=== PATIENT | female | born 1995 | race Caucasian/White ===

== ENCOUNTER 2022-03-08 11:35 | Outpatient (CLI) | payer BC, OTHER, SELFPAY ==
[2022-03-08 12:02] LABS: Basophils Absolute Auto 0.1 K/mm3 (0.0-0.1); Basophils Percent Auto 1.2 % (0.2-1.2); Eosinophils Absolute Auto 0.1 K/mm3 (0-0.3); Eosinophils Percent Auto 1.6 % (0-4.4); Hematocrit 34.1 % (37.0-47.0); Hemoglobin 11.6 g/dL (12.0-15.0); Immature Granulocyte Absolute 0.02 K/mm3 (0.00-0.031); Immature Granulocyte Percent A 0.2 % (0-0.5); Lymphocytes Absolute Auto 2.68 K/mm3 (0.9-3.2); Lymphocytes Percent Auto 32.5 % (18.3-44.2); Mean Corpuscular Hemoglobin 31.4 pg (26-34); Mean Corpuscular Volume 92.2 fl (80-100); Mean Platelet Volume 9.7 fl (7.4-10.4); Monocytes Absolute Auto 0.5 K/mm3 (0.1-0.6); Monocytes Percent Auto 6.2 % (2.6-8.5); Neutrophils Absolute Auto 4.8 K/mm3 (1.3-6.7); Neutrophils Percent Auto 58.3 % (45.5-73.1); Platelet Count Result 247 k/mm3 (150-375); Red Cell Distribution Width 12.5 % (11.5-14.5); White Blood Count 8.2 K/mm3 (4.5-10.0)
[2022-03-08 12:45] LABS: Hepatitis B Surface Antigen Negative (Negative); Rubella IgG Antibody 23.6 IU/ML
[2022-03-08 12:54] LABS: HIV 1/2 Ab P24 Ag Result Negative (Negative)
[2022-03-10 07:35] LABS: Rapid Plasma Reagin Non-Reactive (NonReactive)
[2022-03-11 08:28] LABS: CMV IgG Antibody <0.60 U/mL (<0.60)
== END 2022-03-08 11:36 | disposition home or self-care (01) ==
PROVIDERS: Visit Provider Obstetrics & Gynecology
DX: N94.89 Other specified conditions associated with female genital organs and menstrual cycle (principal)
CPT/HCPCS: 36415; 84702; 85025; 86592; 86644; 86703; 86747; 86762; 86787; 86850; 86900; 86901; 87086; 87088; 87340; G0432

== ENCOUNTER 2022-07-11 12:10 | Outpatient (CLI) | payer BC, SELFPAY ==
[2022-07-11 13:54] LABS: Basophils Absolute Auto 0.1 K/mm3 (0.0-0.1); Basophils Percent Auto 0.9 % (0.2-1.2); Eosinophils Absolute Auto 0.1 K/mm3 (0-0.3); Hematocrit 33.9 % (37.0-47.0); Hemoglobin 11.2 g/dL (12.0-15.0); Immature Granulocyte Absolute 0.03 K/mm3 (0.00-0.031); Immature Granulocyte Percent A 0.3 % (0-0.5); Lymphocytes Absolute Auto 0.81 K/mm3 (0.9-3.2); Lymphocytes Percent Auto 9.3 % (18.3-44.2); Mean Corpuscular Hemoglobin 31.8 pg (26-34); Mean Corpuscular Volume 96.3 fl (80-100); Mean Platelet Volume 9.2 fl (7.4-10.4); Monocytes Absolute Auto 0.8 K/mm3 (0.1-0.6); Monocytes Percent Auto 9.3 % (2.6-8.5); Neutrophils Absolute Auto 6.9 K/mm3 (1.3-6.7); Neutrophils Percent Auto 79.2 % (45.5-73.1); Platelet Count Result 216 k/mm3 (150-375); Red Blood Count 3.52 M/mm3 (4.2-5.4); Red Cell Distribution Width 13.4 % (11.5-14.5); White Blood Count 8.7 K/mm3 (4.5-10.0)
[2022-07-11 13:58] LABS: Glucose 1 Hour PP 50gm Dose 128 mg/dL
[2022-07-11 14:39] LABS: HIV 1/2 Ab P24 Ag Result Negative (Negative)
== END 2022-07-11 12:11 | disposition home or self-care (01) ==
PROVIDERS: Visit Provider Obstetrics & Gynecology
DX: Z34.90 Encounter for supervision of normal pregnancy, unspecified, unspecified trimester (principal); Z3A.00 Weeks of gestation of pregnancy not specified
CPT/HCPCS: 36415; 82947; 85025; 86703; G0432

== ENCOUNTER 2022-09-29 09:06 | Outpatient (RCR) | payer OTHER, SELFPAY ==
--- NOTE | ~2022-09-29 | US_ITS ---
US OB BPP wo non-stress DATE: 09/29/2022 10:03 INDICATION: Past due date TECHNIQUE: Real-time imaging, Doppler analysis COMPARISON: 09/01/2022 Limited abdominal ultrasound examination FINDINGS: Live tovar intrauterine gestation, fetus in longitudinal lie, vertex presentation with heart rate of 137 bpm. Fundal placenta. BIOPHYSICAL PROFILE reported by gi technician: breathin out of 2 movement: 2 out of 2 tone: 2 out of 2 Amniotic fluid pocket (3.4 cm deep amniotic fluid pocket is identified.): 2 out of 2 Total score: 8 out of 8 IMPRESSION: Normal biophysical profile score of 8 out of 8 Reviewed, dictated and finalized at [facility]. Reviewed, dictated and finalized at location B.
[2022-09-29 09:53] VITALS: BP 126/83; PULSE 98
== END 2022-09-29 10:00 | disposition home or self-care (01) ==
LOC: ANHOBOP 09:06
PROVIDERS: Visit Provider Obstetrics & Gynecology
DX: O48.0 Post-term pregnancy (principal); Z3A.40 40 weeks gestation of pregnancy
CPT/HCPCS: 59025; 76819

== ENCOUNTER 2022-09-29 20:09 | Inpatient (IN) | payer OTHER, SELFPAY ==
[2022-09-29] VITALS (24 sets, daily range): BP systolic 125–147; BP diastolic 70–101; PULSE 80–124; O2SAT 94–96; BMI 30.2
--- NOTE | 2022-09-29 21:00 | LDADM ---
This patient, Antonieta Parada, was admitted to Labor/Delivery/Recovery 106 on 09/29/22 at 20:09. Plans for labor, pain management and were discussed with patient. Patient/family oriented to hospital policies and general routines including ID bracelet, bed and alarms, visiting hours, pain management, procedures, bathroom and other care routines, personal items, smoking policy, room service/diet and guest tray routines, infant security routines, and visiting hours. Patient/Family are encouraged to report perceived risks to care and to ask questions if they do not understand what they are told or what they should do. See OBIX for further documentation.
[2022-09-29 21:04] LABS: Basophils Absolute Auto 0.1 K/mm3 (0.0-0.1); Basophils Percent Auto 0.5 % (0.2-1.2); Eosinophils Absolute Auto 0.1 K/mm3 (0-0.3); Eosinophils Percent Auto 0.6 % (0-4.4); Hematocrit 38.8 % (37.0-47.0); Hemoglobin 13.3 g/dL (12.0-15.0); Immature Granulocyte Absolute 0.09 K/mm3 (0.00-0.031); Immature Granulocyte Percent A 0.6 % (0-0.5); Lymphocytes Absolute Auto 2.07 K/mm3 (0.9-3.2); Lymphocytes Percent Auto 13.2 % (18.3-44.2); Mean Corpuscular HGB Conc 34.3 g/dl (32-36); Mean Corpuscular Hemoglobin 32.8 pg (26-34); Mean Corpuscular Volume 95.8 fl (80-100); Mean Platelet Volume 11.7 fl (7.4-10.4); Monocytes Absolute Auto 0.8 K/mm3 (0.1-0.6); Monocytes Percent Auto 5.3 % (2.6-8.5); Neutrophils Absolute Auto 12.5 K/mm3 (1.3-6.7); Neutrophils Percent Auto 79.8 % (45.5-73.1); Platelet Count Result 198 k/mm3 (150-375); Red Blood Count 4.05 M/mm3 (4.2-5.4); Red Cell Distribution Width 13.1 % (11.5-14.5); White Blood Count 15.7 K/mm3 (4.5-10.0)
[2022-09-29 21:26] LABS: Alanine Aminotransferase 27 U/L (6-35); Albumin Level 3.9 g/dL (3.5-5.1); Alkaline Phosphatase 263 U/L (38-126); Anion Gap 9 mmol/L (8-16); Aspartate Amino Transferase 35 U/L (14-36); Bilirubin,Total 0.6 mg/dL (0.2-1.3); Blood Urea Nitrogen 14 mg/dL (7-17); Calcium 9.1 mg/dL (8.4-10.2); Carbon Dioxide 19 mmol/L (22-30); Chloride 105 mmol/L (98-107); Estimated Glomerular Filt Rate > 60; Glucose 93 mg/dL (65-110); Potassium 4.3 mmol/L (3.4-5.0); Sodium 133 mmol/L (137-145)
[2022-09-29] MEDS: LACTATED RINGERS 1,000 ML 999 ML IV CONT (21:45)
--- NOTE | 2022-09-29 21:57 | WPDANESEPP ---
Anes - Eval Pre Procedure Procedure: labor epidural Date/Time: 09/29/22 21:57 Pre Op Diagnosis: Labor Patient Data Age: 27 Gender: F Height: 1.5 m Weight: 68 kg Last Vital Signs Pulse 82 09/29/22 21:48 BP 139/85 09/29/22 21:48 Allergies Allergy/AdvReac Type Severity Reaction Status Date / Time No Known Allergies Allergy Verified 09/24/22 09:17 Home Medications Medication Instructions Recorded Confirmed Type vitamins-iron fumarate 65 1 tablet PO DAILY 01/30/22 09/24/22 History mg iron-folic acid 1 mg tablet ferrous sulfate 325 mg (65 mg 325 mg PO DAILY 04/14/22 09/24/22 History iron) tablet,delayed release Laboratory Tests 09/29/22 09/29/22 09/29/22 20:52 20:53 20:53 WBC 15.7 K/mm3 H K/mm3 (4.5-10.0) RBC 4.05 M/mm3 L M/mm3 (4.2-5.4) Hgb 13.3 g/dL g/dL (12.0-15.0) Hct 38.8 % % (37.0-47.0) MCV 95.8 fl fl (80-100) MCH 32.8 pg pg (26-34) MCHC 34.3 g/dl g/dl (32-36) RDW 13.1 % % (11.5-14.5) Plt Count 198 k/mm3 k/mm3 (150-375) MPV 11.7 fl H fl (7.4-10.4) Immature Gran % (Auto) 0.6 % H % (0-0.5) Neut % (Auto) 79.8 % H % (45.5-73.1) Lymph % (Auto) 13.2 % L % (18.3-44.2) Hill % (Auto) 5.3 % % (2.6-8.5) Eos % (Auto) 0.6 % % (0-4.4) Baso % (Auto) 0.5 % % (0.2-1.2) Lymph # (Auto) 2.07 K/mm3 K/mm3 (0.9-3.2) Hill # (Auto) 0.8 K/mm3 H K/mm3 (0.1-0.6) Eos # (Auto) 0.1 K/mm3 K/mm3 (0-0.3) Baso # (Auto) 0.1 K/mm3 K/mm3 (0.0-0.1) Abs Immat Gran (auto) 0.09 K/mm3 H K/mm3 (0.00-0.031) Absolute Neuts (auto) 12.5 K/mm3 H K/mm3 (1.3-6.7) Absolute Nucleated RBC 0.0 K/mm3 K/mm3 (0.0-0.012) Nucleated RBC % 0.0 % % (0.0-0.2) Sodium 133 mmol/L L mmol/L (137-145) Potassium 4.3 mmol/L mmol/L (3.4-5.0) Chloride 105 mmol/L mmol/L (98-107) Carbon Dioxide 19 mmol/L L mmol/L (22-30) Anion Gap 9 mmol/L mmol/L (8-16) BUN 14 mg/dL mg/dL (7-17) Creatinine 0.60 mg/dL L mg/dL (0.7-1.0) Estim Creat Clear Calc Not Reportable Estimated GFR > 60 (59 - ) Glucose 93 mg/dL mg/dL (65-110) Calcium 9.1 mg/dL mg/dL (8.4-10.2) Total Bilirubin 0.6 mg/dL mg/dL (0.2-1.3) AST 35 U/L U/L (14-36) ALT 27 U/L U/L (6-35) Alkaline Phosphatase 263 U/L H U/L (38-126) Total Protein 7.0 g/dL g/dL (6.3-8.2) Albumin 3.9 g/dL g/dL (3.5-5.1) RPR Pending Patient hx anesthesia problems: none Family hx anesthesia problems: none Results Review: All pre-operative results and documents have been reviewed as part of the pre-operative evaluation. [facility] Past Medical History Medical History Panic attack Suppression of menstruation Surgical History Surgical History H/O abdominal surgery umbilical surgery as a child Family History Family History Grandparent Lung cancer maternal grandmother Other Hypertension Social History Social History Smoking status: Never smoker Alcohol intake: never Substance use: never Substance use type: does not use Lack of Transportation: No Lack of Food: Never True Current Housing: I Have Housing Concerned About Future Housing: No Difficulty Paying Gas/Electric Bills: No Difficulty Paying for Meds: No Currently Unemployed: No Education: High School Diploma/GED Difficulty w/ Childcare or Family Care: No Living arrangements: other Additional living ar
[2022-09-29] MEDS: LACTATED RINGERS 1,000 ML 125 ML IV CONT (22:53)
[2022-09-30] VITALS (34 sets, daily range): BP systolic 105–135; BP diastolic 56–93; PULSE 74–143; RESP 16–20; TEMP 36.7–37.6; O2SAT 97–100
[2022-09-30] MEDS: LACTATED RINGERS 1,000 ML 125 ML IV CONT (01:57)
[2022-09-30] MEDS: OXYTOCIN 30 UNITS/NS 500 ML 30 UNITS/500 ML BAG 6 UNITS IV CONT (06:38)
[2022-09-30 10:53] LABS: Rapid Plasma Reagin Non-Reactive (NonReactive)
--- NOTE | 2022-09-30 11:05 | WPDHPUPDATE1 ---
History and Physical Update Update Date/Time: 09/30/22 11:05 History and Physical has been reviewed, including an updated exam of the patient. There are NO changes in the patient's condition. Risks, benefits, and alternatives have been discussed and questions answered. Patient agrees to proceed with procedure.
--- NOTE | 2022-09-30 11:05 | WPDOBADMIT ---
Obstetrics - Admit Note Admission Note: record reviewed. No pertinent additions to the history and/or any subsequent changes in the physical findings that are not consistent with the expected course of the were found. Additions to the history and/or subsequent changes in the physical findings follow. None.
--- NOTE | 2022-09-30 11:06 | PM.OBPRVD ---
OB - Delivery Note Procedure Induction method: None Delivery augmentation: Pitocin Delivery monitor: External FHT and External Uterine Route of delivery: Episiotomy description: None Laceration Description: Perineal - 3rd Degree ( Partial third-degree) and Other ( 1. Bilateral sulcus tears) Delivery repair: vicryl and chromic Specimen: No Quantitative Blood Loss (ml): 500 Anesthesia type: Epidural Disposition: Floor Complications: none Narrative: patient prepped and draped in usual manner for this procedure. Maternal expulsive efforts delivered vertex over intact perineum. Rest of baby was delivered cord clamped cut placenta delivered spontaneously. Bilateral sulcus tears were approximated using 2-0 chromic in a running interlocking manner with good approximation hemostasis noted in midline tear was approximated in the same manner and brought to the perineum. Deep tissue was then approximated using 2-0 chromic and the subcuticular layer was used to approximate the skin edges. Prior to approximate skin edges the rectal sphincter which was was approximated using 0 Vicryl in interrupted sutures. The rectal sphincter itself was intact, the capsule was all that needed to be approximated. [place] [facility] Weeks of gestation at delivery: 40 gender: Female Weight (pounds): 5 Weight (ounces): 12 presentation: vertex Placenta delivery description: Spontaneous Cord Vessel Description: 3 Vessels, Nuchal Cord and Reduced AMG Delivery Billing Delivery Delivery: Delivery Charge
[2022-09-30] MEDS: OXYTOCIN 30 UNITS/NS 500 ML 30 UNITS/500 ML BAG 125 UNITS IV CONT (11:15)
[2022-09-30] MEDS: ONDANSETRON INJ 4 MG/2 ML VIAL IV PUSH (11:16)
[2022-09-30] MEDS: HYDROcodone/acetaminophen (*CRX) 5-325 MG TABLET 1 TAB PO (15:40)
[2022-09-30] MEDS: KETOROLAC 30 MG/ML VIAL (*BKC) IV PUSH (16:00)
--- NOTE | 2022-09-30 16:56 | PC.NURSE ---
[id number] Introductions were made by Primary RN present in the room. Mother works well with her infant with encouragement and education. Encouraged understanding of the benefits of skin to skin (demonstrating unwrapping infant and placing upright on her chest), stimulating with massage touch, changing positions to encourage wakefulness, how to watch for early feeding cues, responsive feeding, feeding on demand (aiming for 8-12 times in 24 hours, about every 2-3 hours), milk production, building/maintaining a milk supply,hand expression, duration of feeding, signs of adequate intake/output and how to record on the feeding sheet. Reviewed positioning and ear, shoulder, hip alignment, supporting the breast with the sandwich hold to facilitate a deep latch, asymmetrical latch (off-center), leading with the chin with a big, open, wide gape and body close to mother. latched optimally to the right breast in cross cradle laid-back position. Education given to mother of how to visualize suck/swallow ratios and listen for drinking at the breast. Infant was able to maintain latch without discomfort to mother. Nipple care reviewed with optimal latch and good positioning. Reminding mother of comfort measures of healing with a warm and wet washcloth to rinse breast, then leave open to air-dry as needed. Reviewed good handwashing when or touching the breast/nipples to prevent infection. Resources used to facilitate learning were used with the tool, mom and baby guide. Infant effectively breastfed on the left breast using the football positioning. Infant had a copious amount of meconium stool and a wet diaper changed. Mother voiced understanding of skin to skin, stimulating with massage touch, responsive feedings, hand expressed colostrum, talking to infant to encourage if it has been 2 -2.5 hours since the start of the last , to call if infant does not latch, or if there is discomfort with . Resources provided for inpatient and outpatient services with the feeding sheet, mom/baby guide. Mother voiced understanding of information and will call if there is a request for assistance. Reported to the primary RN.
[2022-09-30] MEDS: SENNA/DOCUSATE SODIUM TABLET 2 TAB PO (22:40)
[2022-10-01] MEDS: HYDROcodone/acetaminophen (*CRX) 5-325 MG TABLET 1 TAB PO ×3 (00:08→20:55)
[2022-10-01] MEDS: IBUPROFEN 600 MG TABLET PO ×3 (00:08→16:54)
[2022-10-01 03:35] VITALS: BP 126/78; PULSE 89; RESP 16; TEMP 36.4
[2022-10-01 04:40] LABS: Hematocrit 29.4 % (37.0-47.0); Hemoglobin 9.8 g/dL (12.0-15.0)
[2022-10-01 07:55] VITALS: BP 120/86; PULSE 93; RESP 16; TEMP 37.2; O2SAT 99
[2022-10-01] MEDS: DOCUSATE SODIUM 100 MG CAPSULE PO (08:49)
[2022-10-01] MEDS: POLYSACCHARIDE IRON COMPLEX 150 MG CAPSULE PO ×2 (08:50→16:29)
[2022-10-01] MEDS: MULTIVIT/MIN/PREN/FOL AC/IRON TABLET 1 TAB PO (08:50)
[2022-10-01] MEDS: FERROUS SULFATE 324 MG TABLET PO (08:50)
--- NOTE | 2022-10-01 10:28 | PM.OBPNVD ---
OB - PN: Subj Subjective Date/time seen: 10/01/22 10:28 day 1 without significant concerns. Minimal bleeding and cramping that was significant yesterday has resolved. Breast-feeding and this is going well. VSSAfebrile Fundus appropriately tender Labs noted day 1 without issue Routine care/likely home tomorrow. If desires home tonight we can do this but I have encouraged her to stay until tomorrow if possible. OB - PN: Obj Data Labs 10/01/22 03:39 09/29/22 20:52 Labs: Laboratory Results - last 24 hr 09/29/22 10/01/22 20:53 03:39 Hgb 9.8 L D Hct 29.4 L RPR Non-reactive OB - PN A/P Time Spent With Patient Time: Total time spent is greater than 50% in coordination of care (as documented) at patient's floor/unit and/or counseling patient:
--- NOTE | 2022-10-01 14:35 | PC.NURSE ---
[id number] Purposefully rounded to assess needs. Mother states she has been putting her to breast independently without pain, visualizing and hearing swallowing. is in the bassinet swaddled and stirring. Mother is open to since it has been 2 hours from the start of the last initiated . Infant was placed skin to skin with a blanket covering. is <24hrs and requires a blood sugar. Glucose resulted at 53 mg/dl. Infant has been soothed with a pacifier. Discussed the risks related to . Mother works well with her and demonstrates good positioning, alignment and support of her breast and . Infant latched effectively to the right breast for a few minutes and swallowing was heard. Infant stops nursing and holds the nipple in her mouth. Mother stimulates and once feeding cues are visualized mother offers the breast repeatedly. Infant latches for a few sucks, then either detaches or holds the nipple in her mouth. Infant placed skin to skin. Mother voiced understanding of skin to skin, stimulating with massage touch, responsive feedings, hand expressed colostrum, talking to to encourage if it has been 2 -2.5 hours since the start of the last , to call if infant does not latch, or if there is discomfort with and how to call for assistance. Reported to the primary RN. [id number] Purposefully rounded to assess needs. Mother states breastfed for 10 minutes at 1100 independently. When clarified how long infant maintained effectively mother confirmed that infant had latched for a few minutes, then detached or held the nipple in the mouth. Mother decided to initiate pumping to protect the milk supply. Breast pump provided due to ineffective . Discussed the risks and benefits of pumping and there should be no pain. Instructions given on cleaning, care, usage, pumping schedule for milk production, collection, and storage of human milk. Patient was assessed for correct placement, flange size, to pump for comfort and nipple stretching/stimulation for adequate milk production every 3 hours (8 times in 24 hours) 1-2 times at night. The flange used at this time was bigger than mother needed and we will reassess over time. 24mm flange was used during this pumping session. Blood sugar resulted at 74mg/dl. is eager and demonstrating feeding cues during the 24 hour testing, so the pumping session was discontinued after 10 minutes to finger feed colostrum to her and to attempt latching. latched to the breast for a few minutes, then detached. Mother voiced understanding of the education shared along with mom and baby guide for additional resource information. Reported to the primary RN.
--- NOTE | 2022-10-01 15:40 | WPDANLDPN2 ---
Anes-Prog Note L&D Date/Time: 10/01/22 15:40 Comfortable throughout: labor and delivery Neuraxial method: epidural Epidural/Spinal procedure site: clean & non-tender Neuro status: Neuro function grossly intact. Cardiovascular status: normal Respiratory status: normal Airway patency: baseline Mental status: baseline Post-Op hydration status: normal Vital Signs: Last Vital Signs Temp 37.2 C 10/01/22 07:55 Pulse 93 10/01/22 07:55 Resp 16 10/01/22 07:55 BP 120/86 10/01/22 07:55 Pulse Ox 99 10/01/22 07:55 O2 Del Method Room Air 09/30/22 16:15 Pain score (VAS): 3/10 I/O: Intake & Output 09/30/22 10/01/22 10/01/22 23:59 07:59 15:59 Intake Total 990 350 Output Total 350 Balance 640 350 Post-procedural complaints: none Patient feedback: Patient satisfied with anesthetic care.
[2022-10-01 19:28] VITALS: BP 126/78; PULSE 71; RESP 16; TEMP 36.8
[2022-10-01] MEDS: SENNA/DOCUSATE SODIUM TABLET 2 TAB PO (20:55)
[2022-10-02] MEDS: POLYSACCHARIDE IRON COMPLEX 150 MG CAPSULE PO (07:12)
[2022-10-02] MEDS: FERROUS SULFATE 324 MG TABLET PO (07:12)
[2022-10-02] MEDS: HYDROcodone/acetaminophen (*CRX) 5-325 MG TABLET 1 TAB PO (07:12)
[2022-10-02] MEDS: DOCUSATE SODIUM 100 MG CAPSULE PO (07:13)
[2022-10-02] MEDS: MULTIVIT/MIN/PREN/FOL AC/IRON TABLET 1 TAB PO (07:13)
[2022-10-02 07:45] VITALS: BP 150/92; PULSE 72; RESP 18; TEMP 37.3; O2SAT 99
--- NOTE | 2022-10-02 10:46 | P.DS_ITS ---
DS: Admitting Diagnosis Discharge Date 10/02/2022 Admitting Diagnosis DS: Discharge Diagnosis Discharge Diagnosis (1) , delivered: Code(s): O80 - Encounter for full-term uncomplicated delivery Status: Acute OB - DS: Summary OB Procedures : None OB Procedures Intrapartum: Spontaneous Vag Delivery OB Procedures: : None Time Spent with Patient Time attestation: Total time spent providing and/or coordinating discharge services: Discharge Plan Discharge Discharging Clinician: Jose M Irwin Patient Disposition: Home, Self-Care Activity: as tolerated Diet: as tolerated Patient Instructions: Antibiotic Form Stand Alone Forms: General Discharge Information Follow-up/Referrals: Jose M Irwin MD [Physician] - 3 Weeks Discharge Medications: New ibuprofen 600 mg Tablet 600 mg PO Q6H PRN (Reason: Cramping) Qty: 30 0RF Continued vit-iron fum-folic ac 65 mg iron- 1 mg tablet 1 tablet PO DAILY ferrous sulfate 325 mg (65 mg iron) tablet,delayed release (DR/EC) 325 mg PO DAILY Date of admission: 09/29/22 20:09 Primary Care Provider: PHYSICIAN,[facility] HELPER Admitting Provider: Jose M Irwin Attending physician on admission: Jose M Irwin Condition: Stable
--- NOTE | 2022-10-02 16:28 | PC.NURSE ---
[id number] Discussed feeding and output of with father of the baby. Mother is in the shower and will call out. [id number] Mother led the conversation with her experience and plan to feed her infant so far and her ability to independently latch infant optimally without discomfort, however; doesn't maintain latch. Mother attempted to breastfeed at night, used hand expression for stimulating and bottle fed the infant. Parents had the staff feed the baby during the night as well. Reviewed protecting and building a milk supply. Mother is confident in her abilities to continue with attempting to breastfeed, pump and supplement to feed infant. Reevaluated the flange fit and adjusted flange to 21mm. Reminded parents to use good handwashing technique to prevent infection. Mother is feeding appropriately for growth of infant and understands stimulating to eat if needed. Infant has had appropriate feedings in the last 24 hours meets the outcomes for weight, output and jaundice at this time. Mother states she is confident to continue practice , pumping, and supplementing her infant at home, when to call for assistance and denies any additional assistance or education at this time. Reinforced understanding of milk production, transition of milk, signs of adequate intake, transition of stool, prevention/relief of engorgement, responsive watching for feeding cues, the different methods of stimulating to breastfeed 2-3 hours after the start of the last feeding, community resources, medication information reviewed per [facility] and when to call a provider using the resource of the mom and baby guide/[facility] website. Mother voiced understanding of the education shared. Reported to the primary RN.
[2022-10-03 11:23] VITALS: BP 140/91; PULSE 92; RESP 18; TEMP 36.8; O2SAT 99
== END 2022-10-02 12:27 | disposition home or self-care (01) | DRG 768 ==
LOC: ANHLDR 20:48 → ANHOB2 09-30 13:56
PROVIDERS: Obstetrics & Gynecology; Admitting Provider Obstetrics & Gynecology; Visit Provider Obstetrics & Gynecology
DX: O70.20 Third degree perineal laceration during delivery, unspecified (principal); Z37.0 Single live birth; O69.81X0 Labor and delivery complicated by cord around neck, without compression, not applicable or unspecified; Z3A.40 40 weeks gestation of pregnancy
CPT/HCPCS: 36415; 59025; 76819; 80053; 85014; 85018; 85025; 86592; 86850; 86900; 86901; A9270; J1885; J2405; J2590; J2795; J7120

== ENCOUNTER 2024-03-04 05:08 | Emergency (ER) | payer OTHER, SELFPAY ==
[2024-03-04] VITALS (8 sets, daily range): BP systolic 110–126; BP diastolic 78–91; PULSE 74–85; RESP 16–20; TEMP 36.5–36.6; O2SAT 100
--- NOTE | ~2024-03-04 | XR_ITS ---
EXAMINATION: XR chest 2V DATE: 03/04/2024 06:00 INDICATION: Dizziness. Shortness of breath. TECHNIQUE: Frontal and lateral views of the chest were obtained. COMPARISON: None. FINDINGS: There is no pneumonia, pleural effusion, or pneumothorax. The heart size is normal. IMPRESSION: 1. No acute cardiopulmonary disease. Reviewed, dictated and finalized at location A.
--- NOTE | 2024-03-04 05:12 | ECG_ITS ---
Test Date: 2024-03-04 05:18:50 Measurements Intervals [place] Rate: 67 P: 49 KS: 127 QRS: 35 QRSD: 75 T: 18 QT: 359 QTc: 379 Interpretive Statements SINUS RHYTHM NORMAL ELECTROCARDIOGRAM No previous ECG available for comparison Electronically Signed On 03-04-2024 12:50:42 CDT by Luis Wheeler M.D.
[2024-03-04 05:40] LABS: Basophils Absolute Auto 0.1 K/mm3 (0.0-0.1); Basophils Percent Auto 0.8 % (0.2-1.2); Eosinophils Absolute Auto 0.1 K/mm3 (0-0.3); Eosinophils Percent Auto 1.3 % (0-4.4); Hematocrit 42.8 % (37.0-47.0); Hemoglobin 14.6 g/dL (12.0-15.0); Immature Granulocyte Absolute 0.02 K/mm3 (0.00-0.031); Immature Granulocyte Percent A 0.2 % (0-0.5); Lymphocytes Percent Auto 19.4 % (18.3-44.2); Mean Corpuscular HGB Conc 34.1 g/dl (32-36); Mean Corpuscular Hemoglobin 31.4 pg (26-34); Mean Platelet Volume 9.9 fl (7.4-10.4); Monocytes Absolute Auto 0.5 K/mm3 (0.1-0.6); Monocytes Percent Auto 5.9 % (2.6-8.5); Neutrophils Absolute Auto 6.3 K/mm3 (1.3-6.7); Neutrophils Percent Auto 72.4 % (45.5-73.1); Platelet Count Result 231 k/mm3 (150-375); Red Blood Count 4.65 M/mm3 (4.2-5.4); Red Cell Distribution Width 12.3 % (11.5-14.5); White Blood Count 8.8 K/mm3 (4.5-10.0)
[2024-03-04 05:50] LABS: Alanine Aminotransferase 23 U/L (6-35); Albumin Level 4.4 g/dL (3.5-5.1); Alkaline Phosphatase 132 U/L (38-126); Anion Gap 12 mmol/L (4-12); Aspartate Amino Transferase 30 U/L (14-36); Blood Urea Nitrogen 10 mg/dL (7-17); Calcium 9.2 mg/dL (8.4-10.2); Carbon Dioxide 23 mmol/L (22-30); Chloride 99 mmol/L (98-107); Estimated Glomerular Filt Rate > 60; Glucose 97 mg/dL (65-110); Potassium 3.7 mmol/L (3.4-5.0); Sodium 134 mmol/L (137-145)
[2024-03-04] MEDS: SODIUM CHLORIDE 0.9% IV 1,000 ML 999 ML IV CONT (06:12)
--- NOTE | 2024-03-04 06:22 | ED.GENADULT ---
HPI - General Adult General Chief complaint: Dizziness <Garrett Dowell MD - Last Filed: 03/04/24 06:24> Stated complaint: i feel faint since 0, dizzy, sore throat, uri <Garrett Dowell MD - Last Filed: 03/04/24 06:24> Time Seen by Provider: 03/04/24 05:23 <Garrett Dowell MD - Last Filed: 03/04/24 06:24> History of Present Illness HPI narrative: patient 28-year-old female who presents emergency department with chief complaint of lightheadedness dizziness feeling faint patient reports that she has had upper respiratory symptoms since Thursday reports she tested for COVID and reports that it was negative the patient states she has had a little bit of a sore throat and reports that today she felt very lightheaded and was unsteady patient reports he is feeling better now <Garrett Dowell MD - Last Filed: 03/04/24 06:24> Related Data Allergies/adverse reactions: Allergies Allergy/AdvReac Type Severity Reaction Status Date / Time No Known Allergies Allergy Verified 02/08/24 11:04 <Garrett Dowell MD - Last Filed: 03/04/24 06:24> [facility] Past Medical History Medical History: Medical History Anxiety Panic attack Suppression of menstruation <Garrett Dowell MD - Last Filed: 03/04/24 06:24> Surgical History Surgical History: Surgical History H/O abdominal surgery umbilical surgery as a child <Garrett Dowell MD - Last Filed: 03/04/24 06:24> Family History Family History: Family History Grandparent Lung cancer maternal grandmother Brain tumor maternal grandmother Other Hypertension <Garrett Dowell MD - Last Filed: 03/04/24 06:24> Social History Social History: Social History (Updated 10/05/23 @ 13:49 by GALA FigueroaA) Smoking status: Never smoker Second hand tobacco smoke exposure: No Alcohol intake: never Substance use: never Substance use type: does not use Do You Feel Safe in your Home?: Yes Lack of Transportation: No Lack of Food: Never True Current Housing: I Have Housing Concerned About Future Housing: No Difficulty Paying Gas/Electric Bills: No Difficulty Paying for Meds: No Currently Unemployed: No Education: High School Diploma/GED Difficulty w/ Childcare or Family Care: No Living arrangements: other Additional living arrangements comments: Occupation/Education: occupation 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 Gender identity (if verbalized by the patient): Female Sexual Orientation (if Verbalized by the Patient): Straight or Heterosexual Spiritual care concerns: No <Garrett Dowell MD - Last Filed: 03/04/24 06:24> Course Vital Signs Vital signs: Vital Signs Temperature 97.7 F 03/04/24 05:12 Pulse Rate 85 03/04/24 05:12 Respiratory Rate 20 03/04/24 05:12 Blood Pressure 115/86 03/04/24 05:12 Pulse Oximetry 100 03/04/24 05:12 Oxygen Delivery Room Air 03/04/24 05:12 Temperature 97.7 F 03/04/24 05:12 Pulse Rate 85 03/04/24 05:12 Respiratory Rate 20 03/04/24 05:12 Blood Pressure 111/91 H 03/04/24 05:30 Pulse Oximetry 100 03/04/24 05:12 Oxygen Delivery Room Air 03/04/24 05:12 <Garrett Dowell MD - Last Filed: 03/04/24 06:24> Vital Signs Temperature 97.7 F 03/04/24 05:12 Pulse Rate 85 03/04/24 05:12 Respiratory Rate 20 03/04/24 05:12 Blood Pressure 115/86 03/04/24 05:12 Pulse Oximetry 100 03/04/24 05:12 Oxygen Delivery Room Air 03/04/24 05:12 Temperature 97.7 F 03/04/24 05:12 Pulse Rate 85 03/04/24 05:12 Respiratory Rate 20 03/04/24 05:12 Blood Pressure 111/91 H 03/04/24 05:30 Pulse Oximetry 100 03/04/24
[2024-03-04 07:19] LABS: Add Urine Microscopic? YES; Appearance Urine Cloudy (Clear); Bacteria Urine 1+ /hpf; Bilirubin Urine 2+ (Negative); Blood Urine Negative (Negative); Calcium Oxalate Crystals Urine Present /hpf; Color Urine Dark Yellow (Yellow); Glucose Urine UA Trace mg/dL (Negative); Ketones Urine Trace mg/dL (Negative); Leukocyte Esterase Ur Trace LEU/UL (Negative); Mucus Urine Present /lpf; Nitrate Urine Positive (Negative); Non Pathogenic Casts 0-2; Protein Urine 1+ mg/dL (Negative); Specific Grav Ur > 1.045 (1.001-1.035); Squamous Epithelial Cell Urine Moderate /hpf (Few); WBC Urine 0-5 /hpf (0-3); pH Urine 5.5 (5.0-9.0)
[2024-03-04 07:21] LABS: BEDSIDEPREGUCG Negative
[2024-03-04 07:45] LABS: Influenza A QL RT-PCR Negative (Negative); Influenza B QL RT-PCR Negative (Negative); RSV RNA, RT-PCR Negative (Negative); SARS-CoV-2 RNA PCR Positive (Negative); Strep Group A RT-PCR NOT DETECTED (Negative)
== END 2024-03-04 10:04 | disposition home or self-care (01) ==
PROVIDERS: Emergency Provider Emergency Medicine
DX: U07.1 COVID-19 (principal); N39.0 Urinary tract infection, site not specified
CPT/HCPCS: 36415; 71046; 80053; 81001; 81025; 85025; 87637; 87651; 93005; 96360; 96361; 99284; J7030

== ENCOUNTER 2024-07-02 06:04 | Emergency (ER) | payer OTHER, SELFPAY ==
[2024-07-02 06:10] VITALS: BP 130/83; PULSE 73; RESP 16; TEMP 36.7; O2SAT 100
--- NOTE | 2024-07-02 06:18 | PC.NURSE ---
this rn gave patient ice pack to apply on lips for pain control upon arrival.
--- NOTE | 2024-07-02 07:26 | ED.GENADULT ---
HPI - General Adult General Chief complaint: Allergic Reaction Stated complaint: swollen lips Time Seen by Provider: 07/02/24 07:05 History of Present Illness HPI narrative: Patient is a 29-year-old female who presents ER with swelling of her lips. Worsening over last 2 days. Associated with small little breaks in the skin that have week date yellow crust. No fevers or chills or sweats. No dental pain. No improvement with chapstick or medicating lotion. Related Data Allergies Allergy/AdvReac Type Severity Reaction Status Date / Time No Known Allergies Allergy Verified 07/02/24 06:13 Review of Systems Constitutional: Constitutional: Reports no additional constitutional complaints ENT: Reports system reviewed and no additional complaints, except as documented Cardiovascular: Cardiovascular: Reports no additional cardiovascular complaints Respiratory: Respiratory: Reports no additional respiratory complaints PMFSH Past Medical History Medical History Anxiety Panic attack Suppression of menstruation Surgical History Surgical History H/O abdominal surgery umbilical surgery as a child Family History Family History Grandparent Lung cancer maternal grandmother Brain tumor maternal grandmother Other Hypertension Social History Social History (Updated 10/05/23 @ 13:49 by Maria Eugenia Tovar [facility]) Smoking status: Never smoker Second hand tobacco smoke exposure: No Alcohol intake: never Substance use: never Substance use type: does not use Do You Feel Safe in your Home?: Yes Lack of Transportation: No Lack of Food: Never True Current Housing: I Have Housing Concerned About Future Housing: No Difficulty Paying Gas/Electric Bills: No Difficulty Paying for Meds: No Currently Unemployed: No Education: High School Diploma/GED Difficulty w/ Childcare or Family Care: No Living arrangements: other Additional living arrangements comments: Occupation/Education: occupation 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 HEAD: Normocephalic, atraumatic. ENT: Mucous membranes moist. Yelling crest periorally with edema of the upper and lower lip. NEURO: Alert and oriented x3. PSYCH: Normal mood and affect. Course Course Emergency Course: Patient resting comfortably. Discussed treatment plan. Discharge. Vital Signs Vital signs: Vital Signs Temperature 98.1 F 07/02/24 06:10 Pulse Rate 73 07/02/24 06:10 Respiratory Rate 16 07/02/24 06:10 Blood Pressure 130/83 07/02/24 06:10 Pulse Oximetry 100 07/02/24 06:10 Oxygen Delivery Room Air 07/02/24 06:10 Temperature 98.1 F 07/02/24 06:10 Pulse Rate 73 07/02/24 06:10 Respiratory Rate 16 07/02/24 06:10 Blood Pressure 130/83 07/02/24 06:10 Pulse Oximetry 100 07/02/24 06:10 Oxygen Delivery Room Air 07/02/24 06:10 Medical Decision Making Vital Signs Vital Signs: Vital Signs Temperature 98.1 F 07/02/24 06:10 Pulse Rate 73 07/02/24 06:10 Respiratory Rate 16 07/02/24 06:10 Blood Pressure 130/83 07/02/24 06:10 Pulse Oximetry 100 07/02/24 06:10 Oxygen Delivery Room Air 07/02/24 06:10 Temperature 98.1 F 07/02/24 06:10 Pulse Rate 73 07/02/24 06:10 Respiratory Rate 16 07/02/24 06:10 Blood Pressure 130/83 07/02/24 06:10 Pulse Oximetry 100 07/02/24 06:10 Oxygen Delivery Room Air 07/02/24 06:10 Discharge Plan Discharge Clinical Impression: Impetigo Patient Disposition: Home, Self-Care Condition: Stable Instructions: Impetigo (ED) Additional Instructions: Return ER if he cannot breathe, he cannot swallow, or you have additional concerns. Patient Language: Kenyan Prescriptions: New doxycycline hyclate 100 mg tablet 100 mg PO BID Qty: 14 0RF mupirocin 2 % ointment 1 applic topical TID Qty: 15 0RF No Action drospirenone-ethinyl estradiol [JEFF (28)] 3-0.02 mg tablet 1 tablet PO DAILY Qty: 84 3RF cephalexin 500 mg capsule 500 mg PO Q12H 7 Days Qty: 14 0RF Follow-up/Referrals: Vel Ordonez MD [Physician] - 1 Week PHYSICIAN,GAS METER REPAIR SUPERVISOR [Non-Staff] -
[2024-07-02 07:35] VITALS: BP 111/78; PULSE 89; RESP 16; O2SAT 99
--- OUTSIDE RECORDS SUMMARY | 2024-07-09 03:15 | XMS_ITS | Encounter Summary ---
Author Organization [facility] Address [address] [place] [address] Care Team Providers Care Language Teacher Name Role Phone Tereza Maldonado MD Primary Care Provider [phone] Encounter Details Date Type Department Care Team (Late st Contact Info) Description 04/05/2024 External Device Data STL ABSTRACTION Provider, Abstract NO ADDRESS ON FILE Social History Tobacco Use Types Packs/Day Years Used Date Smoking Tobacco: Never Alcohol Use Standard Drinks/Week Comments Not Currently 0 (1 standard drink = 0.6 oz pur e alcohol) Sex and Gender Information Value Date Recorded Sex Assigned at Female 03/18/2024 5:02 AM CDT Gender Identity Female 03/18/2024 5:02 AM CDT Sexual Orientation Straight 03/18/2024 5: 02 AM CDT documented as of this encounter Plan of Treatment Not on file documented as of this encounter Visit Diagnoses Not on filedocumented in this encounter Care Teams Language Teacher Relationship Specialty Start Date End Date Tereza Maldonado MD [address] [place], [place] [address] [place] [address] PCP - General Internal Medicine 03/31/24 documented as of this encounter
--- OUTSIDE RECORDS SUMMARY | 2024-07-09 03:15 | XMS_ITS | Encounter Summary ---
Author Organization [facility] Address [address] [place] [address] Care Team Providers Care Fur Mixer Operator Name Role Phone Tereza Maldonado MD Primary Care Provider [phone] Encounter Details Date Type Department Care Team [...] on filedocumented in this encounter Care Teams Fur Mixer Operator Relationship Specialty Start Date End Date Tereza Maldonado MD [address] [place], [place] [address] [place] [address] PCP - General Internal Medicine 03/31/24 documented as of this encounter
--- OUTSIDE RECORDS SUMMARY | 2024-07-09 03:15 | XMS_ITS | Encounter Summary ---
Author Organization [facility] Address [address] [place] [address] Care Team Providers Care Director Oracle Name Role Phone Tereza Maldonado MD Primary Care Provider [phone] Encounter Details Date Type Department Care Team [...] on filedocumented in this encounter Care Teams Director Oracle Relationship Specialty Start Date End Date Tereza Maldonado MD [address] [place], [place] [address] [place] [address] PCP - General Internal Medicine 03/31/24 documented as of this encounter
--- OUTSIDE RECORDS SUMMARY | 2024-07-09 03:15 | XMS_ITS | Encounter Summary ---
Author Organization [facility] Address [address] [place] [address] Care Team Providers Care Orthopedic Physician Name Role Phone Tereza Maldonado MD Primary Care Provider [phone] Reason for Visit * Reason Comments Establish Care Patient states no is sues or concerns at this time. Jut wants to establish care with our clinic. Encounter Details Date Type Department Care Team (Late st Contact Info) Description 03/31/2024 8:30 AM CDT Office Visit [facility] [address] [place] [address] Tereza Maldonado MD [address] [place] [address] Encounter to establish care (Primary Dx); Screening for condition Social History Tobacco Use Types Packs/Day Years Used Date Smoking Tobacco: Never Tobacco Cessation:Counseling Given: Not Answered Alcohol Use Standard Drinks/Week Comments Not Currently 0 (1 standard drink = 0.6 oz pur e alcohol) Sex and Gender Information Value Date Recorded Sex Assigned at Female 03/18/2024 5:02 AM CDT Gender Identity Female 03/18/2024 5:02 AM CDT Sexual Orientation Straight 03/18/2024 5: 02 AM CDT documented as of this encounter Last Filed Vital Signs Vital Sign Reading Time Taken Comments Blood Pressure 116/70 03/31/2024 8:24 AM CDT Pulse 83 03/31/2024 8:24 AM CDT Temperature 37.3 ??C (99.1 ??F) 03/31/2024 8:24 AM CD T Respiratory Rate 16 03/31/2024 8:24 AM CDT Oxygen Saturation 99% 03/31/2024 8:24 AM CDT Inhaled Oxygen Concentration - - Weight 51.3 kg (113 lb) 03/31/2024 8:24 AM CDT Height 149.9 cm (4' 11 ) 03/31/2024 8:24 AM CDT Body Mass Index 22.82 03/31/2024 8:24 AM CDT documented in this encounter Progress Notes * Tereza Maldonado MD - 03/31/2024 8:34 AM CDT Antonieta Parada is a 28 y.o. female There is no problem list on file for this patient. Allergy and medication list reviewed and updated. SUBJECTIVE: Chief Complaint/HPI: Patient presents today to establish SOCIAL Smoking- never ETOH- occasional wine Drug Usage-never Exercise- runs around a 18 mo old Diet- no particulat- more fast food than shoulde There are no problems to display for this patient. Current Outpatient Medications on File Prior to Visit Medication Sig Dispense Refill Vestura, 28, 3-0.02 mg tablet Take 1 Tablet by mouth daily. No current facility-administered medications on file prior to visit. No Known Allergies Past Medical History: Diagnosis Date SHONDA (generalized anxiety disorder) Past Surgical History: Procedure Laterality Date HX HERNIA REPAIR N/A umbilical age 3 Family History Problem Relation Name Age of Onset No Known Problems Father No Known Problems Mother No Known Problems Brother Hypertension Maternal Grandmother Lung Cancer Maternal Grandmother No Known Problems Maternal Grandfather No Known Problems Paternal Grandmother No Known Problems Paternal Grandfather No Known Problems Daughter Social History Tobacco Use Smoking status: Never Smokeless tobacco: Not on file Substance Use Topics Alcohol use: Not Currently Review of Systems - General ROS: negative for weight changes, fever Psychological ROS: negative for anxiety or depressive symptoms ENT ROS: negative Ophthalmic ROS: negative for - blurry vision, decreased vision, double vision or loss of vision Endocrine ROS: negative for - polydipsia/polyuria or temperature intolerance Respiratory ROS: negative for - cough, orthopnea or shortness of breath Cardiovascular ROS: negative for - chest pain, dyspnea on exertion, edema, irregular heartbeat or paroxysmal nocturnal dyspnea GI ROS: denies abdominal pain, indigestion, heartburn, difficulty swallowing, change in bowel habits, blood in stool Neurological ROS: negative for - dizziness, headaches, numbness/tingling or visual changes OBJECTIVE: She appears well, in no apparent distress. Vital signs documented in vital signs section are reviewed. Physical Examination: General appearance - alert, well appearing, and in no distress Mental status - alert, oriented to person, place, and time Eyes - pupils equal and reactive, extraocular eye movements intact Neck - carotids upstroke normal bilaterally, no bruits, thyroid exam: thyroid is normal in size without nodules or tenderness Chest - clear to auscultation, no wheezes, rales or rhonchi, symmetric air entry Heart - normal rate and regular rhythm, no murmurs noted Abdomen- soft, flat, non tender. No organomegaly, BS nml Neurological - alert, oriented, normal speech, no focal findings or movement disorder noted, cranial nerves II through XII intact Extremities - no pedal edema noted, intact peripheral pulses ASSESSMENT AND PLAN: ICD-10-CM ICD-9-CM 1. Encounter to establish care Z76.89 V65.8 2. Screening for condition Z13.9 V82.9 TSH LIPID PANEL CBC WITH DIFFERENTIAL COMPREHENSIVE METABOLIC PANEL VITAMIN D 25 HYDROXY States she is UP TO DATE on Well Woman exam/Pap, Tdap (had when with her 18 mo old) Reviewed importance of healthy diet and regular exercise, use of sunscreen, importance of monthly self skin exams.), helmet use during high risk activity, in home working smoke and carbon monoxide detectors as well as safe storage of any guns in place of living. Follow-up 1 year prn documented in this encounter Plan of Treatment Not on file documented as of this encounter Results * VITAMIN D 25 HYDROXY (04/15/2024 8:08 AM CDT) VITAMIN D, 25 OH, TOTAL 50 30 - 100 ng/mL [facility] Comment: Vitamin D Status ? 25-OH Vitamin D: Deficiency: ?<20 ng/mL Insufficiency: ? 20 - 29 ng/mL Optimal: ? > or = 30 ng/mL For 25-OH Vitamin D testing on patients on D2-supplementation and patients for whom quantitation of D2 and D3 fractions is required, the [facility](TM) 25-OH VIT D, (D2,D3), LC/MS/MS is recommended: order code 51765 (patients >2yrs). See Note 1 Note 1 For additional information, please refer to http://education.[employer] ([employer].com)/faq/QWK383 (This link is being provided for informational/ educational purposes only.) Test Performed at: [facility] [address] [place], [place] ??[phone] Karey Nicole MD Blood 04/15/2024 8:08 AM CDT 04/16/2024 2:03 AM CDT Tereza Maldonado MD CHEMISTRY ORDERABLES [facility] [phone] [facility] [address] [place] [phone] * COMPREHENSIVE METABOLIC PANEL (04/15/2024 8:08 AM CDT) GLUCOSE 90 65 - 99 mg/dL [facility] [place] Comment: ? Fasting reference interval BUN 12 7 - 25 mg/dL [facility] [place] CREATININE 0.63 0.50 - 0.97 mg/dL [facility] [place] GFR 122 > OR = 60 mL/min/1. 73m2 [facility] [place] BUN/CREAT RATIO SEE NOTE: 6 22 (calc) [facility] [place] Comment: ?? Not Reported: BUN and Creatinine are within ?? reference range. ? SODIUM 137 135 - 146 mmol/L [facility] [place] POTASSIUM 3.9 3.5 - 5.3 mmol/L [facility] [place] CHLORIDE 105 98 - 110 mmol/L [facility] [place] CO2 22 20 - 32 mmol/L [facility] [place] CALCIUM 9.4 8.6 - 10.2 mg/dL [facility] TOTAL PROTEIN 7.0 6.1 - 8.1 g/dL [facility] ALBUMIN 4.2 3.6 - 5.1 g/dL [facility] GLOBULIN 2.8 1.9 - 3.7 g/dL (calc) [facility] ALBUMIN/GLOBULIN RATIO 1.5 1.0 - 2.5 (calc) [facility] BILIRUBIN TOTAL 0.9 0.2 - 1.2 mg/dL [facility] ALKALINE PHOSPHATASE 71 31 - 125 U/L [facility] AST 16 10 - 30 U/L [facility] ALT 12 6 - 29 U/L [facility] Comment: Test Performed at: [place] [address] [place] ??[phone] Karey Nicole Blood 04/15/2024 8:08 AM CDT 04/16/2024 2:03 AM CDT Tereza Maldonado MD CHEMISTRY ORDERABLES [facility] [phone] [place] [address] [place] [address] * (ABNORMAL) CBC WITH DIFFERENTIAL (04/15/2024 8:08 AM CDT) WBC 8.0 3.8 - 10.8 Thousand/ uL [facility] RBC 4.08 3.80 - 5.10 Million/u L [facility] HEMOGLOBIN 12.6 11.7 - 15.5 g/dL [facility] HEMATOCRIT 39.6 35.0 - 45.0 % [facility] MCV 97.1 80.0 - 100.0 fL [facility] MCH 30.9 27.0 - 33.0 pg [facility] MCHC 31.8(L) 32.0 - 36.0 g/dL [facility] [place] Comment: For adults, a slight decrease in the calculated MCHC value (in the range of 30 to 32 g/dL) is most likely not clinically significant; however, it should be interpreted with caution in correlation with other red cell parameters and the patient's clinical condition. RDW 12.6 11.0 - 15.0 % [facility] [place] PLATELETS 281 140 - 400 Thousand/ uL [facility] MPV 11.1 7.5 - 12.5 fL [facility] [place] NEUTROPHIL ABSOLUTE 4,136 1,500 - 7,800 cells/uL [facility] [place] LYMPHOCYTE ABSOLUTE 3,176 850 - 3,900 cells/uL [facility] [place] MONOCYTE ABSOLUTE 432 200 - 950 cells/uL [facility] [place] EOSINOPHIL ABSOLUTE 144 15 - 500 cells/uL [facility] [place] BASOPHILS ABSOLUTE 112 0 - 200 cells/uL [facility] [place] NEUTROPHIL 51.7 % [facility] [place] LYMPHOCYTES 39.7 % [facility] [place] MONOCYTE 5.4 % [facility] [place] EOSINOPHILS 1.8 % [facility] [place] BASOPHILS 1.4 % [facility] [place] Comment: Test Performed at: [facility] [address] [place] ??[phone] Karey Nicole Blood 04/15/2024 8:08 AM CDT 04/16/2024 2:03 AM CDT Tereza Maldonado MD HEMATOLOGY ORDERABLE S [facility] [phone] [facility] [address] [place] [address] * (ABNORMAL) LIPID PANEL (04/15/2024 8:08 AM CDT) CHOLESTEROL 220(H) <200 mg/dL [facility] HDL 77 > OR = 50 mg/dL [facility] TRIGLYCERIDE 130 <150 mg/dL [facility] [place] LDL CALCULATED 118(H) mg/dL (calc) [facility] [place] Comment: Reference range: <100 Desirable range <100 mg/dL for primary prevention; ?? <70 mg/dL for patients with CHD or diabetic patients with > or = 2 CHD risk factors. LDL-C is now calculated using the Daniel-Alvarez calculation, which is a validated novel method providing better accuracy than the Friedewald equation in the estimation of LDL-C. Daniel BAZAN et al. CEDRIC. 2013;310(19): 5358-9038 (http://education.Vertive (Offers.com)/faq/JUG847) CHOL/HDL RATIO 2.9 <5.0 (calc) [facility] [place] NON-HDL CHOLESTEROL 143(H) <130 mg/dL (calc) [facility] [place] Comment: For patients with diabetes plus 1 major ASCVD risk factor, treating to a non-HDL-C goal of <100 mg/dL (LDL-C of <70 mg/dL) is considered a therapeutic option. Test Performed at: [facility] [place] [address] [place] ??[phone] Karey Nicole Blood 04/15/2024 8:08 AM CDT 04/16/2024 2:03 AM CDT Tereza Maldonado MD CHEMISTRY ORDERABLES [facility] [phone] [place] [address] [place] [address] * TSH (04/15/2024 8:08 AM CDT) TSH 1.51 mIU/L [facility] [place] Comment: ?Reference Range ?> or = 20 Years ??0.40-4.50 ? Ranges ?First trimester ?0.26-2.66 ?Second trimester ?? 0.55-2.73 ?Third trimester ?0.43-2.91 Test Performed at: [facility] [address] [place] ??[phone] Karey Nicole Blood 04/15/2024 8:08 AM CDT 04/16/2024 2:03 AM CDT Tereza Maldonado MD CHEMISTRY ORDERABLES [facility] [phone] [facility] [address] [place] [address] documented in this encounter Visit Diagnoses Diagnosis Encounter to establish care- Primary Reserved for inherently not codable concepts WITHOUT codable children Screening for condition Screening for unspecified condition documented in this encounter Care Teams Orthopedic Physician Relationship Specialty Start Date End Date Tereza Maldonado MD [address] [place] [phone] PCP - General Internal Medicine 03/31/24 documented as of this encounter
--- OUTSIDE RECORDS SUMMARY | 2024-07-09 03:15 | XMS_ITS | Clinical Summary ---
Author Organization [facility] [employer] M[place]ER Address [address] [email or web address] [address] Care Team Providers Care Scrap Metal Collector Name Role Phone Tereza Maldonado MD Primary Care Provider [phone] Allergies No known active allergies Medications Medication Sig Dispensed Refills Start Date End Date Status Vestura, 28, 3-0.02 mg tablet Take 1 Tablet by mouth daily. 10/11/2023 Active Active Problems Problem Noted Date Diagnosed Date Pure hypercholesterolemia 04/18/2024 Encounters Date Type Department Care Team Description 04/15/2024 8:20 AM CDT Clinical Support [facility] [employer] [place] [address] [address] [place] [address] Screening for condition from Last 3 Months Family History Medical History Relation Name Comments No Known Problems Brother No Known Problems Daughter No Known Problems Father No Known Problems Maternal Grandfather Hypertension Maternal Grandmother Lung Cancer Maternal Grandmother No Known Problems Mother No Known Problems Paternal Grandfather No Known Problems Paternal Grandmother Relation Name Status Comments Brother Alive Daughter Alive Father Alive Maternal Grandfather Maternal Grandmother Mother Alive Paternal Grandfather Paternal Grandmother Alive Social History Tobacco Use Types Packs/Day Years [...] Orientation Straight 03/18/2024 5: 02 AM CDT Last Filed Vital Signs Vital Sign Reading [...] Mass Index 22.82 03/31/2024 8:24 AM CDT Plan of Treatment Health Maintenance Due Date Last Done Comments DTAP/TDAP/TD VACCINES (1 - Tdap) 2012 HEPATITIS B VACCINES (1 of 3 - 19+ 3-dose series) 2012 CERVICAL CANCER SCREENING 2023 INFLUENZA VACCINE (#1) 2024 Preventative Visit- Commercial Completed 03/31/2024 HPV VACCINES Aged Out No longer eligi ble based on patient's age to complete this topic PNEUMOCOCCAL VACCINE 0-64 YEARS Aged Out No longer eligible based on patient's age to complete this topic Procedures Procedure Name Priority Date/Time Associated Diagnosis Comments TSH Routine 04/15/2024 8:08 AM CDT Screening for condition LIPID PANEL Routine 04/15/2024 8:08 AM CDT Screening for condition CBC WITH DIFFERENTIAL Routine 04/15/2024 8:08 AM CDT Screening for condition COMPREHENSIVE METABOLIC PANEL Routine 04/15/2024 8:08 AM CDT Screening for condition VITAMIN D 25 HYDROXY Routine 04/15/2024 8:08 AM CDT Screening for condition from Last 3 Months Results * (ABNORMAL) CBC WITH DIFFERENTIAL (04/15/2024 8:08 AM CDT) [facility] WBC 8.0 3.8 - 10.8 Thousand/ uL [facility] [place] RBC 4.08 3.80 - 5.10 Million/u L [facility]Kaylene [facility] HEMOGLOBIN 12.6 11.7 - 15.5 g/dL [facility]Kaylene [facility] HEMATOCRIT 39.6 35.0 - 45.0 % [facility] MCV 97.1 80.0 - 100.0 fL [facility] MCH 30.9 27.0 - 33.0 pg [facility]Kaylene Frederick MCHC 31.8(L) 32.0 - 36.0 g/dL [facility] jimbo Frederick Comment: For adults, a slight decrease in the calculated MCHC value (in the range of 30 to 32 g/dL) is most likely not clinically significant; however, it should be interpreted with caution in correlation with other red cell parameters and the patient's clinical condition. RDW 12.6 11.0 - 15.0 % [facility]Kaylene Frederick PLATELETS 281 140 - 400 Thousand/ uL [facility]Kaylene Frederick MPV 11.1 7.5 - 12.5 fL [facility]Kaylene Frederick NEUTROPHIL ABSOLUTE 4,136 1,500 - 7,800 cells/uL [facility]Kay[facility] Frederick LYMPHOCYTE ABSOLUTE 3,176 850 - 3,900 cells/uL [facility]Kay[facility] MONOCYTE ABSOLUTE 432 200 - 950 cells/uL [facility] EOSINOPHIL ABSOLUTE 144 15 - 500 cells/uL [facility] BASOPHILS ABSOLUTE 112 0 - 200 cells/uL [facility] NEUTROPHIL 51.7 % [facility]Kaylene [facility] LYMPHOCYTES 39.7 % [facility] jimbo Frederick MONOCYTE 5.4 % [facility] jimbo Frederick EOSINOPHILS 1.8 % [facility] jimbo Frederick BASOPHILS 1.4 % [facility] jimbo Frederick Comment: Test Performed at: [facility] [address] [place] ??[phone] [employer]iquiDannymaycol Margy Vo Blood 04/15/2024 8:08 AM CDT 04/16/2024 2:03 AM CDT Tereza Maldonado MD HEMATOLOGY ORDERABLE S [facility] [phone] [facility]Health[facility] [place] [address] [place] [phone] * VITAMIN D 25 HYDROXY (04/15/2024 8:08 AM CDT) VITAMIN D, 25 OH, TOTAL 50 30 - 100 ng/mL [facility] enstepha Comment: Vitamin D Status ? 25-OH Vitamin D: Deficiency: ?<20 ng/mL Insufficiency: ? 20 - 29 ng/mL Optimal: ? > or = 30 ng/mL For 25-OH Vitamin D testing on patients on D2-supplementation and patients for whom quantitation of D2 and D3 fractions is required, the Quest[facility]ure[facility](TM) 25-OH VIT D, (D2,D3), LC/MS/MS is recommended: order code 38565 (patients >2yrs). See Note 1 Note 1 For additional information, please refer to http://education.[employer]/faq/MXR351 (This link is being provided for informational/ educational purposes only.) Test Performed at: [facility] [employer] [address] [place], [place] ??[phone] Karey Nicole MD Blood 04/15/2024 8:08 AM CDT 04/16/2024 2:03 AM CDT Tereza Maldonado MD CHEMISTRY ORDERABLES Performing Organization Address City/State/[facility] Co de Phone Number [facility] [phone] [facility] [address] [place] [address] * TSH (04/15/2024 8:08 AM CDT) Pathologist [facility] TSH 1.51 mIU/L [facility]Andrew Frederick Comment: ?Reference Range ?> or = 20 Years ??0.40-4.50 ? Ranges ?First trimester ?0.26-2.66 ?Second trimester ?? 0.55-2.73 ?Third trimester ?0.43-2.91 Test Performed at: [facility] [place] [address] [place] ??[phone] Karey Nicole Blood 04/15/2024 8:08 AM CDT 04/16/2024 2:03 AM CDT Tereza Maldonado MD CHEMISTRY ORDERABLES [facility] [phone] [facility]Health[facility] [place] [address] [place] [address] * (ABNORMAL) LIPID PANEL (04/15/2024 8:08 AM CDT) CHOLESTEROL 220(H) <200 mg/dL [facility] Switch2HealthKaylene Frederick HDL 77 > OR = 50 mg/dL Striped SailKaylene Frederick TRIGLYCERIDE 130 <150 mg/dL [facility] Frederick LDL CALCULATED 118(H) mg/dL (calc) [facility] Frederick Comment: Reference range: <100 Desirable range <100 mg/dL for primary prevention; ?? <70 mg/dL for patients with CHD or diabetic patients with > or = 2 CHD risk factors. LDL-C is now calculated using the Daniel-Kim calculation, which is a validated novel method providing better accuracy than the Friedewald equation in the estimation of LDL-C. Daniel BAZAN et al. CEDRIC. 2013;310(19): 8665-1900 (http://education.[employer]/faq/HFV807) CHOL/HDL RATIO 2.9 <5.0 (calc) [facility] NON-HDL CHOLESTEROL 143(H) <130 mg/dL (calc) Alber [facility]Andrew Frederick Comment: For patients with diabetes plus 1 major ASCVD risk factor, treating to a non-HDL-C goal of <100 mg/dL (LDL-C of <70 mg/dL) is considered a therapeutic option. Test Performed at: [facility] [place] [address] [place] ??[phone] Karey Nicole Blood 04/15/2024 8:08 AM CDT 04/16/2024 2:03 AM CDT Tereza Maldonado MD CHEMISTRY ORDERABLES [facility] [phone] [facility] [address] [place] [phone] * COMPREHENSIVE METABOLIC PANEL (04/15/2024 8:08 AM CDT) GLUCOSE 90 65 - 99 mg/dL Striped SailKaylene choi Otoniel Comment: ? Fasting reference interval BUN 12 7 - 25 mg/dL [facility]iel CREATININE 0.63 0.50 - 0.97 mg/dL [facility] O[facility]iel GFR 122 > OR = 60 mL/min/1. 73m2 [facility] O[facility]iel BUN/CREAT RATIO SEE NOTE: 6 22 (calc) [facility] Sail jimbo Frederikc Comment: ?? Not Reported: BUN and Creatinine are within ?? reference range. ? SODIUM 137 135 - 146 mmol/L [facility] O[facility]iel POTASSIUM 3.9 3.5 - 5.3 mmol/L [facility] CHLORIDE 105 98 - 110 mmol/L [facility] CO2 22 20 - 32 mmol/L [facility] CALCIUM 9.4 8.6 - 10.2 mg/dL [facility] O[facility]iel TOTAL PROTEIN 7.0 6.1 - 8.1 g/dL [facility] ALBUMIN 4.2 3.6 - 5.1 g/dL [facility] GLOBULIN 2.8 1.9 - 3.7 g/dL (calc) [facility] O[facility]iel ALBUMIN/GLOBULIN RATIO 1.5 1.0 - 2.5 (calc) [facility] S[facility] jimbo Frederick BILIRUBIN TOTAL 0.9 0.2 - 1.2 mg/dL [facility] S[facility] jimbo Otoniel ALKALINE PHOSPHATASE 71 31 - 125 U/L [facility] O[facility]iel AST 16 10 - 30 U/L [facility] O[facility] ALT 12 6 - 29 U/L Striped SailS t Otoniel Comment: Test Performed at: [facility] [address] [place] ??[phone] Karey Nicole Blood 04/15/2024 8:08 AM CDT 04/16/2024 2:03 AM CDT Tereza Maldonado MD CHEMISTRY ORDERABLES [facility] [phone] [facility] [address] [place] [address] from Last 3 Months Care Teams Scrap Metal Collector Relationship Specialty Start Date End Date Tereza Maldonado MD [address] [place] [address] [place] [address] PCP - General Internal Medicine 03/31/24
--- OUTSIDE RECORDS SUMMARY | 2024-07-09 03:15 | XMS_ITS | Encounter Summary ---
Author Organization [facility] Address [address] [place] [address] Care Team Providers Care Drafter Electronic Name Role Phone Tereza Maldonado MD Primary Care Provider Reason for Visit * Reason Comments Labs Only Encounter Details Date Type Department Care Team (Latest Contact Info) Description 04/15/2024 8:20 AM CDT Clinical Support [facility] at [facility] [employer] [address] [place] [address] Screening for condition Social History Tobacco Use [...] AM CDT documented as of this encounter Progress Notes * Anca Larson RN - 04/15/2024 8:16 AM CDT Pt presents for lab draw. Left AC successful 1 stick. Pt tolerated well. documented in this encounter Miscellaneous Notes * Result Encounter Note - Anca Larson RN - 04/21/2024 7:49 AM CDT LM with no pt name giving pt this information. documented in this encounter Plan of Treatment Not on file documented as of this encounter Procedures Procedure Name Priority Date/Time Associated Diagnosis Comments CBC WITH DIFFERENTIAL Routine 04/15/2024 8:08 AM CDT Screening for condition VITAMIN D 25 HYDROXY Routine 04/15/2024 8:08 AM CDT Screening for condition TSH Routine 04/15/2024 8:08 AM CDT Screening for condition LIPID PANEL Routine 04/15/2024 8:08 AM CDT Screening for condition COMPREHENSIVE METABOLIC PANEL Routine 04/15/2024 8:08 AM CDT Screening for condition documented in this encounter Results * TSH (04/15/2024 8:08 AM CDT) TSH 1.51 mIU/L [facility]lene Frederick Comment: ?Reference Range ?> or = 20 Years ??0.40-4.50 ? Ranges ?First trimester ?0.26-2.66 ?Second trimester ?? 0.55-2.73 ?Third trimester ?0.43-2.91 Test Performed at: [facility] [address] [place] ??[phone] Karey Ji Blood 04/15/2024 8:08 AM CDT 04/16/2024 2:03 AM CDT Tereza Maldonado MD CHEMISTRY ORDERABLES [facility] [phone] [place] [address] [place] [address] * (ABNORMAL) LIPID PANEL (04/15/2024 8:08 AM CDT) CHOLESTEROL 220(H) <200 mg/dL Yella RewardsKaylene jimbo Frederick HDL 77 > OR = 50 mg/dL SmartdateKaylene jimbo Frederick TRIGLYCERIDE 130 <150 mg/dL [facility]ella RewardsKaylene choi O[place]iel LDL CALCULATED 118(H) mg/dL (calc) SmartdateKaylene choi Otoniel Comment: Reference range: <100 Desirable range <100 mg/dL for primary prevention; ?? <70 mg/dL for patients with CHD or diabetic patients with > or = 2 CHD risk factors. LDL-C is now calculated using the Nico calculation, which is a validated novel method providing better accuracy than the Friedewald equation in the estimation of LDL-C. Daniel SS et al. CEDRIC. 2013;310(19): 3029-7219 (http://education.[employer]/faq/OHX777) CHOL/HDL RATIO 2.9 <5.0 (calc) [facility] RANK PRODUCTIONSKaylene Frederick NON-HDL CHOLESTEROL 143(H) <130 mg/dL (calc) Yella RewardsKaylene jimbo Frederick Comment: For patients with diabetes plus 1 major ASCVD risk factor, treating to a non-HDL-C goal of <100 mg/dL (LDL-C of <70 mg/dL) is considered a therapeutic option. Test Performed at: [place] [facility] [address] [address] [place] ??[phone] Karey Nicole Blood 04/15/2024 8:08 AM CDT 04/16/2024 2:03 AM CDT Tereza Maldonado MD CHEMISTRY ORDERABLES [facility] [phone] [place] [address] [address] [place] [address] * (ABNORMAL) CBC WITH DIFFERENTIAL (04/15/2024 8:08 AM CDT) Pathologist [facility] WBC 8.0 3.8 - 10.8 Thousand/ uL [facility] [employer] jimbo Frederick RBC 4.08 3.80 - 5.10 Million/u L [facility] Otoniel HEMOGLOBIN 12.6 11.7 - 15.5 g/dL [facility] jimbo [place] HEMATOCRIT 39.6 35.0 - 45.0 % [facility] jimbo [place] MCV 97.1 80.0 - 100.0 fL [facility] jimbo Frederick MCH 30.9 27.0 - 33.0 pg [facility] [place] MCHC 31.8(L) 32.0 - 36.0 g/dL [facility] jimbo [place] Comment: For adults, a slight [...] 281 140 - 400 Thousand/ uL [facility] jimbo [place] MPV 11.1 7.5 - 12.5 fL [facility] [place] NEUTROPHIL ABSOLUTE 4,136 1,500 - 7,800 cells/uL [facility] [employer] jimbo [place] LYMPHOCYTE ABSOLUTE 3,176 850 - 3,900 cells/uL [facility]-[facility] jimbo [place] MONOCYTE ABSOLUTE 432 200 - 950 cells/uL [facility] [place] EOSINOPHIL ABSOLUTE 144 15 - 500 cells/uL [facility] [place] BASOPHILS ABSOLUTE 112 0 - 200 cells/uL [facility] [place] NEUTROPHIL 51.7 % [facility] jimbo [place] LYMPHOCYTES 39.7 % [facility] MONOCYTE 5.4 % [facility] EOSINOPHILS 1.8 % [facility] BASOPHILS 1.4 % [facility] Comment: Test Performed at: [place] [address] [place] ??[phone] Karey Ji Blood 04/15/2024 8:08 AM CDT 04/16/2024 2:03 AM CDT Tereza Maldonado MD HEMATOLOGY ORDERABLE S [facility] [phone] [place] [address] [place] [address] * COMPREHENSIVE METABOLIC PANEL (04/15/2024 8:08 AM CDT) GLUCOSE 90 65 - 99 mg/dL [facility] RewardsKaylene Frederick Comment: ? Fasting reference interval BUN 12 7 - 25 mg/dL [facility] RANK PRODUCTIONSKaylene Frederick CREATININE 0.63 0.50 - 0.97 mg/dL [facility] RANK PRODUCTIONSKaylene Frederick GFR 122 > OR = 60 mL/min/1. 73m2 [facility] RANK PRODUCTIONSKaylene Frederick BUN/CREAT RATIO SEE NOTE: 6 - 22 (calc) [facility] RANK PRODUCTIONSKaylene Frederick Comment: ?? Not Reported: BUN and Creatinine are within ?? reference range. ? SODIUM 137 135 - 146 mmol/L [facility] jimbo Frederick POTASSIUM 3.9 3.5 - 5.3 mmol/L [facility]iel CHLORIDE 105 98 - 110 mmol/L [facility] O[facility]iel CO2 22 20 - 32 mmol/L [facility] Otoniel CALCIUM 9.4 8.6 - 10.2 mg/dL [facility] O[facility]iel TOTAL PROTEIN 7.0 6.1 - 8.1 g/dL [facility] ALBUMIN 4.2 3.6 - 5.1 g/dL [facility] GLOBULIN 2.8 1.9 - 3.7 g/dL (calc) [facility] [employer] jimbo Frederick ALBUMIN/GLOBULIN RATIO 1.5 1.0 - 2.5 (calc) [facility] jimbo Frederick BILIRUBIN TOTAL 0.9 0.2 - 1.2 mg/dL [facility] [employer] jimbo Frederick ALKALINE PHOSPHATASE 71 31 - 125 U/L [facility] O[facility] AST 16 10 - 30 U/L [facility] O[facility]iel ALT 12 6 - 29 U/L [facility] O[facility]iel Comment: Test Performed at: [place] [address] [place] ??[phone] Karey Nicole Blood 04/15/2024 8:08 AM CDT 04/16/2024 2:03 AM CDT Tereza Maldonado MD CHEMISTRY ORDERABLES [facility] [phone] [place] [address] [place] [address] * VITAMIN D 25 HYDROXY (04/15/2024 8:08 AM CDT) VITAMIN D, 25 OH, TOTAL 50 30 - 100 ng/mL [facility] Comment: Vitamin D Status ? 25-OH Vitamin D: Deficiency: ?<20 ng/mL Insufficiency: ? 20 - 29 ng/mL Optimal: ? > or = 30 ng/mL For 25-OH Vitamin D testing on patients on D2-supplementation and patients for whom quantitation of D2 and D3 fractions is required, the QuestAssureD(TM) 25-OH VIT D, (D2,D3), LC/MS/MS is recommended: order code [id number] (patients >2yrs). See Note 1 Note 1 For additional information, please refer to http://education.CloudDock/faq/VSD994 (This link is being provided for informational/ educational purposes only.) Test Performed at: [facility] [address] [place], [place] ??[phone] Karey Nicole MD Blood 04/15/2024 8:08 AM CDT 04/16/2024 2:03 AM CDT Tereza Maldonado MD CHEMISTRY ORDERABLES [facility] [phone] [facility]ardsPaul [facility]Bro[facility] [address] documented in this encounter Visit Diagnoses Diagnosis Screening for condition Screening for unspecified condition documented in this encounter Care Teams Drafter Electronic Relationship Specialty Start Date End Date Tereza Maldonado MD [address] [place] [address] PCP - General Internal Medicine 03/31/24 documented as of this encounter
--- OUTSIDE RECORDS SUMMARY | 2024-07-09 03:52 | XMS_ITS | Encounter Summary ---
Author Organization [facility] Address [address] [place] [address] Care Team Providers Care Tool And Die Maker/Designer Name Role Phone Tereza Maldonado MD Primary Care Provider Reason for Visit * Reason Comments Labs Only Encounter Details Date Type Department Care Team (Latest Contact Info) Description 04/15/2024 8:20 AM CDT Clinical Support [facility] [employer] [address] [place] [address] Screening for condition Social History [...] (04/15/2024 8:08 AM CDT) TSH 1.51 mIU/L DataLockerKaylene Frederick Comment: ?Reference Range ?> or = 20 Years ??0.40-4.50 ? Ranges ?First trimester ?0.26-2.66 ?Second trimester ?? 0.55-2.73 ?Third trimester ?0.43-2.91 Test Performed at: [place] [address] [place] ??[phone] Karey Ji Blood 04/15/2024 8:08 AM CDT 04/16/2024 2:03 AM CDT Tereza Maldonado MD CHEMISTRY ORDERABLES [facility] [phone] [place] [address] [place] [address] * (ABNORMAL) LIPID PANEL (04/15/2024 8:08 AM CDT) CHOLESTEROL 220(H) <200 mg/dL DataLockerKaylene jimbo Frederick HDL 77 > OR = 50 mg/dL IdentityForgeKaylene jimbo Frederick TRIGLYCERIDE 130 <150 mg/dL DataLockerKaylene choi Otoniel LDL CALCULATED 118(H) mg/dL (calc) IdentityForgeKaylene choi Otoniel Comment: Reference range: <100 Desirable range <100 mg/dL for primary prevention; ?? <70 mg/dL for patients with CHD or diabetic patients with > or = 2 CHD risk factors. LDL-C is now calculated using the Nico calculation, which is a validated novel method providing better accuracy than the Friedewald equation in the estimation of LDL-C. Daniel SS et al. CEDRIC. 2013;310(19): 2268-0864 (http://education.Aurora Pharmaceutical/faq/ARD705) CHOL/HDL RATIO 2.9 <5.0 (calc) [facility] KalibrrKaylene Frederick NON-HDL CHOLESTEROL 143(H) <130 mg/dL (calc) DataLockerKaylene jimbo Frederick Comment: For patients with diabetes plus 1 major ASCVD risk factor, treating to a non-HDL-C goal of <100 mg/dL (LDL-C of <70 mg/dL) is considered a therapeutic option. Test Performed at: [place] [address] [place] ??[phone] Karey Nicole Blood 04/15/2024 8:08 AM CDT 04/16/2024 2:03 AM CDT Tereza Maldonado MD CHEMISTRY ORDERABLES [facility] [phone] [place] [address] [place] [phone] * (ABNORMAL) CBC WITH DIFFERENTIAL (04/15/2024 8:08 AM CDT) Pathologist [facility] WBC 8.0 3.8 - 10.8 Thousand/ uL [facility] Kalibrr jimbo Frederick RBC 4.08 3.80 - 5.10 Million/u L [facility] Otoniel HEMOGLOBIN 12.6 11.7 - 15.5 g/dL [...] ABSOLUTE 4,136 1,500 - 7,800 cells/uL [facility]S jimbo [place]toniel LYMPHOCYTE ABSOLUTE 3,176 850 - 3,900 cells/uL [facility] jimbo [place]iel MONOCYTE ABSOLUTE 432 200 - [...] Diagnostics-S t Otoniel Comment: Test Performed at: [place] [address] [place] ??[phone] Karye Ji Blood 04/15/2024 8:08 AM CDT 04/16/2024 2:03 AM CDT Tereza Maldonado MD HEMATOLOGY ORDERABLE S [facility] [phone] [place] [address] [place] [phone] * COMPREHENSIVE METABOLIC PANEL (04/15/2024 8:08 AM CDT) GLUCOSE 90 65 - 99 mg/dL DataLockerKaylene Frederick Comment: ? Fasting reference interval BUN 12 7 - 25 mg/dL [facility] KalibrrKaylene Frederick CREATININE 0.63 0.50 - 0.97 mg/dL [facility] KalibrrKaylene Frederick GFR 122 > OR = 60 mL/min/1. 73m2 [facility] KalibrrKaylene Ferderick BUN/CREAT RATIO SEE NOTE: 6 - 22 (calc) [facility] KalibrrKaylene Frederick Comment: ?? Not Reported: BUN and Creatinine are within ?? reference range. ? SODIUM 137 135 - 146 mmol/L [facility] jimbo Frederick POTASSIUM 3.9 3.5 - 5.3 mmol/L [facility] Otoniel CHLORIDE 105 98 - 110 mmol/L [facility] Otoniel CO2 22 20 - 32 mmol/L [facility] Otoniel CALCIUM 9.4 8.6 - 10.2 mg/dL [facility] Otoniel TOTAL PROTEIN 7.0 6.1 - 8.1 g/dL [facility] Otoniel ALBUMIN 4.2 3.6 - 5.1 g/dL [facility] Otoniel GLOBULIN 2.8 1.9 - 3.7 g/dL (calc) [facility] Kalibrr jimbo Frederick ALBUMIN/GLOBULIN RATIO 1.5 1.0 - 2.5 (calc) [facility] jimbo Frederick BILIRUBIN TOTAL 0.9 0.2 - 1.2 mg/dL [facility] Kalibrr jimbo Frederick ALKALINE PHOSPHATASE 71 31 - 125 U/L [facility] Otoniel AST 16 10 - 30 U/L [facility] Otoniel ALT 12 6 - 29 U/L [facility] Otoniel Comment: Test Performed at: [place] [address] [place] ??[phone] Karey Nicole Blood 04/15/2024 8:08 AM CDT 04/16/2024 2:03 AM CDT Tereza Maldonado MD CHEMISTRY ORDERABLES [facility] [phone] [place] [address] [place] [phone] * VITAMIN D 25 HYDROXY (04/15/2024 8:08 AM CDT) VITAMIN D, 25 OH, TOTAL 50 30 - 100 ng/mL [facility]Locker-[facility] [place] Comment: Vitamin D Status ? 25-OH Vitamin D: Deficiency: ?<20 ng/mL Insufficiency: ? 20 - 29 ng/mL Optimal: ? > or = 30 ng/mL For 25-OH Vitamin D testing on patients on D2-supplementation and patients for whom quantitation of D2 and D3 fractions is required, the QuestAssureD(TM) 25-OH VIT D, (D2,D3), LC/MS/MS is recommended: order code 54074 (patients >2yrs). See Note 1 Note 1 For additional information, please refer to http://education.[employer]urora [employer]/faq/JXT538 (This link is being provided for informational/ educational purposes only.) Test Performed at: [facility] [address] [place], [place] ??[phone] Karey Nicole MD Blood 04/15/2024 8:08 AM CDT 04/16/2024 2:03 AM CDT Tereza Maldonado MD CHEMISTRY ORDERABLES [facility] [phone] [facility] Hospital[facility] [address] documented in this encounter Visit Diagnoses Diagnosis Screening for condition Screening for unspecified condition documented in this encounter Care Teams Tool And Die Maker/Designer Relationship Specialty Start Date End Date Tereza Maldonado MD [address] [place] [address] PCP - General Internal Medicine 03/31/24 documented as of this encounter
--- OUTSIDE RECORDS SUMMARY | 2024-07-09 03:52 | XMS_ITS | Encounter Summary ---
Author Organization [facility] Address [address] [place] [address] Care Team Providers Care Food Services Manager Name Role Phone Tereza Maldonado MD Primary Care Provider [phone] Encounter Details Date Type Department Care Team [...] on filedocumented in this encounter Care Teams Food Services Manager Relationship Specialty Start Date End Date Tereza Maldonado MD [address] [place], [place] [address] [place] [address] PCP - General Internal Medicine 03/31/24 documented as of this encounter
--- OUTSIDE RECORDS SUMMARY | 2024-07-09 03:52 | XMS_ITS | Encounter Summary ---
Author Organization [facility] Address [address] [place] [address] Care Team Providers Care Lapidarist Name Role Phone Tereza Maldonado MD Primary Care Provider [phone] Encounter Details Date Type Department Care Team [...] on filedocumented in this encounter Care Teams Lapidarist Relationship Specialty Start Date End Date Tereza Maldonado MD [address] [place], [place] [address] [place] [address] PCP - General Internal Medicine 03/31/24 documented as of this encounter
--- OUTSIDE RECORDS SUMMARY | 2024-07-09 03:52 | XMS_ITS | Encounter Summary ---
Author Organization [facility] Address [address] [place] [address] Care Team Providers Care Brine Room Laborer Name Role Phone Tereza Maldonado MD Primary Care Provider [phone] Encounter Details Date Type Department Care Team [...] on filedocumented in this encounter Care Teams Brine Room Laborer Relationship Specialty Start Date End Date Tereza Maldonado MD [address] [place], [place] [address] [place] [address] PCP - General Internal Medicine 03/31/24 documented as of this encounter
--- OUTSIDE RECORDS SUMMARY | 2024-07-09 03:52 | XMS_ITS | Clinical Summary ---
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 10/11/2023 Active Active Problems Problem Noted Date Diagnosed Date Pure hypercholesterolemia 04/18/2024 Encounters Date Type Department Care Team Description 04/15/2024 8:20 AM CDT Clinical Support [facility] [place] [address] [address] [place] [address] Screening for condition from Last [...] CBC WITH DIFFERENTIAL (04/15/2024 8:08 AM CDT) [facility] WBC 8.0 3.8 - 10.8 Thousand/ [...] condition. RDW 12.6 11.0 - 15.0 % Alber Reed-Kaylene Frederick PLATELETS 281 140 - 400 [...] [facility] Brianna-S jimbo Frederick BASOPHILS 1.4 % Tictail-S jimbo Frederick Comment: Test Performed at: [place] [address] [place] ??[phone] ChiquiDannymaycol Margy Vo Blood 04/15/2024 8:08 AM CDT 04/16/2024 2:03 AM CDT Tereza Maldonado MD HEMATOLOGY ORDERABLE S [facility] [phone] [facility] [place]raise[place] [address] [place] [address] * VITAMIN D 25 HYDROXY (04/15/2024 8:08 AM CDT) VITAMIN D, 25 OH, TOTAL 50 30 - 100 ng/mL Tictail-L enstepha Comment: Vitamin D Status ? 25-OH Vitamin D: Deficiency: ?<20 ng/mL Insufficiency: ? 20 - 29 ng/mL Optimal: ? > or = 30 ng/mL For 25-OH Vitamin D testing on patients on D2-supplementation and patients for whom quantitation of D2 and D3 fractions is required, the QuestAssureD(TM) 25-OH VIT D, (D2,D3), LC/MS/MS is recommended: order code 17312 (patients >2yrs). See Note 1 Note 1 For additional information, please refer to http://education.UpTo/faq/MTD925 (This link is being provided for informational/ educational purposes only.) Test Performed at: [facility] [place] [address] [place], [place] ??[phone] Karey Nicole MD Blood 04/15/2024 8:08 AM CDT 04/16/2024 2:03 AM CDT Tereza Maldonado MD CHEMISTRY ORDERABLES Performing Organization Address City/State/[facility] Co de Phone Number [facility] [phone] [facility] [address] [place] [address] * TSH (04/15/2024 8:08 AM CDT) Pathologist [facility] TSH 1.51 mIU/L TictailAndrew Frederick Comment: ?Reference Range ?> or = 20 Years ??0.40-4.50 ? Ranges ?First trimester ?0.26-2.66 ?Second trimester ?? 0.55-2.73 ?Third trimester ?0.43-2.91 Test Performed at: [employer] [place] [address] [place] ??[phone] Karey Nicole Blood 04/15/2024 8:08 AM CDT 04/16/2024 2:03 AM CDT Tereza Maldonado MD CHEMISTRY ORDERABLES [facility] [phone] [facility] [place] [address] [place] [address] * (ABNORMAL) LIPID PANEL (04/15/2024 8:08 AM CDT) CHOLESTEROL 220(H) <200 mg/dL [facility] DatappraiseKaylene Frederick HDL 77 > OR = 50 mg/dL Aprecia PharmaceuticalsKaylene Frederick TRIGLYCERIDE 130 <150 mg/dL TictailKaylene Frederick LDL CALCULATED 118(H) mg/dL (calc) TictailKaylene Frederick Comment: Reference range: <100 Desirable range <100 mg/dL for primary prevention; ?? <70 mg/dL for patients with CHD or diabetic patients with > or = 2 CHD risk factors. LDL-C is now calculated using the Daniel-Kim calculation, which is a validated novel method providing better accuracy than the Friedewald equation in the estimation of LDL-C. Daniel BAZAN et al. CEDRIC. 2013;310(19): 9500-8579 (http://education.UpTo/faq/MAQ463) CHOL/HDL RATIO 2.9 <5.0 (calc) TictailAndrew Frederick NON-HDL CHOLESTEROL 143(H) <130 mg/dL (calc) Alber DatappraiseAndrew Frederick Comment: For patients with diabetes plus 1 major ASCVD risk factor, treating to a non-HDL-C goal of <100 mg/dL (LDL-C of <70 mg/dL) is considered a therapeutic option. Test Performed at: [place] [address] [place] ??[phone] Karey Nicole Blood 04/15/2024 8:08 AM CDT 04/16/2024 2:03 AM CDT Tereza Maldonado MD CHEMISTRY ORDERABLES [facility] [phone] [facility] [place] [address] [place] [address] * COMPREHENSIVE METABOLIC PANEL (04/15/2024 8:08 AM CDT) GLUCOSE 90 65 - 99 mg/dL Aprecia PharmaceuticalsKaylene choi Otoniel Comment: ? Fasting reference interval BUN 12 7 - 25 mg/dL [facility] Otoniel CREATININE 0.63 0.50 - 0.97 mg/dL [facility] Otoniel GFR 122 > OR = 60 mL/min/1. 73m2 [facility] Otoniel BUN/CREAT RATIO SEE NOTE: 6 22 (calc) [employer] jimbo Frederick Comment: ?? Not Reported: BUN and Creatinine are within ?? reference range. ? SODIUM 137 135 - 146 mmol/L [facility] Otoniel POTASSIUM 3.9 3.5 - 5.3 mmol/L [facility] O[facility]iel CHLORIDE 105 98 - 110 mmol/L [facility] O[facility]iel CO2 22 20 - 32 mmol/L [facility] O[facility]iel CALCIUM 9.4 8.6 - 10.2 mg/dL [facility] O[facility]iel TOTAL PROTEIN 7.0 6.1 - 8.1 g/dL [facility] O[facility]iel ALBUMIN 4.2 3.6 - 5.1 g/dL [facility] Otoniel GLOBULIN 2.8 1.9 - 3.7 g/dL (calc) [facility] O[facility]iel ALBUMIN/GLOBULIN RATIO 1.5 1.0 - 2.5 (calc) [employer] jimbo Frederick BILIRUBIN TOTAL 0.9 0.2 - 1.2 mg/dL [employer] jimbo Otoniel ALKALINE PHOSPHATASE 71 31 - 125 U/L [facility] Otoniel AST 16 10 - 30 U/L [facility] Otoniel ALT 12 6 - 29 U/L Aprecia PharmaceuticalsS t Otoniel Comment: Test Performed at: [facility] [address] [address] [place] ??[phone] Karey Nicole Blood 04/15/2024 8:08 AM CDT 04/16/2024 2:03 AM CDT Tereza Maldonado MD CHEMISTRY ORDERABLES [facility] [phone] [facility] [address] [place] [address] from Last 3 Months Care Teams Compressed Gas Plant Worker Relationship Specialty Start Date End Date Tereza Maldonado MD [address] [place] [address] [place] [address] PCP - General Internal Medicine 03/31/24
--- OUTSIDE RECORDS SUMMARY | 2024-07-09 03:52 | XMS_ITS | Encounter Summary ---
Author Organization [facility] Address [address] [place] [address] Care Team Providers Care Business Management Specialist Name Role Phone Tereza Maldonado MD Primary Care Provider [phone] Reason for Visit * Reason Comments Establish Care Patient states no is sues or concerns at this time. Jut wants to establish care with our clinic. Encounter Details Date Type Department Care Team (Late st Contact Info) Description 03/31/2024 8:30 AM CDT Office Visit [facility] [employer] [place] [address] Tereza Maldonado MD [address] [place] [address] Encounter to establish care (Primary [...] OH, TOTAL 50 30 - 100 ng/mL [facility] Comment: Vitamin D Status ? 25-OH Vitamin D: Deficiency: ?<20 ng/mL Insufficiency: ? 20 - 29 ng/mL Optimal: ? > or = 30 ng/mL For 25-OH Vitamin D testing on patients on D2-supplementation and patients for whom quantitation of D2 and D3 fractions is required, the QuestAssureD(TM) 25-OH VIT D, (D2,D3), LC/MS/MS is recommended: order code [id number] (patients >2yrs). See Note 1 Note 1 For additional information, please refer to http://education.Smore/faq/WKG166 (This link is being provided for informational/ educational purposes only.) Test Performed at: [facility] [address] [place] ??[phone] Karey Nicole MD Blood 04/15/2024 8:08 AM CDT 04/16/2024 2:03 AM CDT Tereza Maldonado MD CHEMISTRY ORDERABLES [facility] [phone] [facility] [address] [place] [phone] * COMPREHENSIVE METABOLIC PANEL (04/15/2024 8:08 AM CDT) GLUCOSE 90 65 - 99 mg/dL [employer] jimbo Frederick Comment: ? Fasting reference interval BUN 12 7 - 25 mg/dL [facility] jimbo Frederick CREATININE 0.63 0.50 - 0.97 mg/dL [facility] jimbo Frederick GFR 122 > OR = 60 mL/min/1. 73m2 [facility] jimbo Frederick BUN/CREAT RATIO SEE NOTE: 6 22 (calc) [facility] jimbo Frederick Comment: ?? Not Reported: BUN and Creatinine are within ?? reference range. ? SODIUM 137 135 - 146 mmol/L [facility] jimbo Frederick POTASSIUM 3.9 3.5 - 5.3 mmol/L [facility] jimbo Frederick CHLORIDE 105 98 - 110 mmol/L [facility] jimbo Frederick CO2 22 20 - 32 mmol/L [facility] jimbo Frederick CALCIUM 9.4 8.6 - 10.2 mg/dL [facility] Otoniel TOTAL PROTEIN 7.0 6.1 - 8.1 g/dL [facility] Otoniel ALBUMIN 4.2 3.6 - 5.1 g/dL [facility] Otoniel GLOBULIN 2.8 1.9 - 3.7 g/dL (calc) [facility] ALBUMIN/GLOBULIN RATIO 1.5 1.0 - 2.5 (calc) [facility] BILIRUBIN TOTAL 0.9 0.2 - 1.2 mg/dL [facility] Otoniel ALKALINE PHOSPHATASE 71 31 - 125 U/L [facility] Otoniel AST 16 10 - 30 U/L [facility] ALT 12 6 - 29 U/L [facility] Otoniel Comment: Test Performed at: [place] [address] [place] ??[phone] Karey Nicole Blood 04/15/2024 8:08 AM CDT 04/16/2024 2:03 AM CDT Tereza Maldonado MD CHEMISTRY ORDERABLES [facility] [phone] [place] [address] [place] [phone] * (ABNORMAL) CBC WITH DIFFERENTIAL (04/15/2024 8:08 AM CDT) WBC 8.0 3.8 - 10.8 Thousand/ uL [facility] RBC 4.08 3.80 - 5.10 Million/u L [facility] Otoniel HEMOGLOBIN 12.6 11.7 - 15.5 g/dL [facility] Otoniel HEMATOCRIT 39.6 35.0 - 45.0 % [facility] MCV 97.1 80.0 - 100.0 fL [facility] Otoniel MCH 30.9 27.0 - 33.0 pg [facility] Otoniel MCHC 31.8(L) 32.0 - 36.0 g/dL [facility] jimbo Frederick Comment: For adults, a [...] Diagnostics-S jimbo Frederick BASOPHILS 1.4 % [facility]ion-S jimbo [place] Comment: Test Performed at: [place] [facility] [address] [place] ??[phone] Karey Nicole Blood 04/15/2024 8:08 AM CDT 04/16/2024 2:03 AM CDT Tereza Maldonado MD HEMATOLOGY ORDERABLE S [facility] [phone] [facility] Opt[facility] [address] [place] [phone] * (ABNORMAL) LIPID PANEL (04/15/2024 8:08 AM CDT) CHOLESTEROL 220(H) <200 mg/dL Alber OptherionKaylene Frederick HDL 77 > OR = 50 mg/dL Alber OptherionKaylene Frederick TRIGLYCERIDE 130 <150 mg/dL [facility]-Kaylene Frederick LDL CALCULATED 118(H) mg/dL (calc) [facility]-Kaylene Frederick Comment: Reference range: <100 Desirable range <100 mg/dL for primary prevention; ?? <70 mg/dL for patients with CHD or diabetic patients with > or = 2 CHD risk factors. LDL-C is now calculated using the Daniel-Alvarez calculation, which is a validated novel method providing better accuracy than the Friedewald equation in the estimation of LDL-C. Daniel BAZAN et al. CEDRIC. 2013;310(19): 6955-4699 (http://education.Smore/faq/FSS473) CHOL/HDL RATIO 2.9 <5.0 (calc) Alber OptherionAndrew Frederick NON-HDL CHOLESTEROL 143(H) <130 mg/dL (calc) Little QuestKaylene jimbo Frederick Comment: For patients with diabetes plus 1 major ASCVD risk factor, treating to a non-HDL-C goal of <100 mg/dL (LDL-C of <70 mg/dL) is considered a therapeutic option. Test Performed at: [employer] [place] [address] [place] ??[phone] Karey Nicole Blood 04/15/2024 8:08 AM CDT 04/16/2024 2:03 AM CDT Tereza Maldonado MD CHEMISTRY ORDERABLES [facility] [phone] [place] [address] [place] [address] * TSH (04/15/2024 8:08 AM CDT) TSH 1.51 mIU/L Little QuestKaylene jimbo Frederick Comment: ?Reference Range ?> or = 20 Years ??0.40-4.50 ? Ranges ?First trimester ?0.26-2.66 ?Second trimester ?? 0.55-2.73 ?Third trimester ?0.43-2.91 Test Performed at: [place] [address] [address] [place] ??[phone] Karey Nicole Blood 04/15/2024 8:08 AM CDT 04/16/2024 2:03 AM CDT Tereza Maldonado MD CHEMISTRY ORDERABLES [facility] [phone] [place] [facility] [address] [place] [address] documented in this encounter Visit Diagnoses Diagnosis Encounter to establish care- Primary Reserved for inherently not codable concepts WITHOUT codable children Screening for condition Screening for unspecified condition documented in this encounter Care Teams Business Management Specialist Relationship Specialty Start Date End Date Tereza Maldonado MD [address] [place] [address] PCP - General Internal Medicine 03/31/24 documented as of this encounter
== END 2024-07-02 07:35 | disposition home or self-care (01) ==
PROVIDERS: Emergency Provider Emergency Medicine
DX: L01.00 Impetigo, unspecified (principal)
CPT/HCPCS: 99283